=== PATIENT | female | born 1985 | race Caucasian/White ===

== ENCOUNTER 2019-12-25 11:45 | Inpatient (IN) | payer OTHER ==
[~2019-12-25] VITALS: Ht 165.1 cm; Wt 51.7 kg
[2019-12-25] VITALS (8 sets, daily range): BP systolic 90–142; BP diastolic 58–92
[2019-12-25 12:33] LABS: HEMATOCRIT 39.8 % (37.0-47.0); HEMOGLOBIN 13.2 gm/dL (12.0-15.0); MCH 28.3 pg (26.0-34.0); MCHC 33.2 g/dL (28.0-37.0); MCV 85.4 fL (80.0-100.0); MPV 8.3 fl. (7.2-11.1); NUCLEATED RBCS 0 /100WBC; PLATELET COUNT* 247 thou/uL (150-400); RBC 4.66 mil/uL (4.20-5.00); RDW-CV 13.5 % (10.5-14.5); WBC 7.1 thou/uL (4.0-11.0)
[2019-12-25 12:34] LABS: ABSOLUTE EOSINOPHILS 0.1 thou/uL (0.0-0.7); ABSOLUTE LYMPHOCYTES 2.2 thou/uL (0.8-5.3); ABSOLUTE MONOCYTES 0.4 thou/uL (0.0-1.2); ABSOLUTE NEUTROPHILS 4.5 thou/uL (1.6-8.1); BASOPHILS 0.6 %; EOSINOPHILS 0.9 %; LYMPHOCYTES 30.3 %; MONOCYTES 5.7 %; POLYS 62.5 %
[2019-12-25 12:38] LABS: CALCIUM 8.6 mg/dL (8.5-10.1); CREATININE 0.8 mg/dL (0.6-1.3); POTASSIUM 3.9 mmol/L (3.5-5.1)
[2019-12-25 12:42] LABS: ALBUMIN 4.4 g/dL (3.4-5.0); TOTAL BILIRUBIN 0.7 mg/dL (<0.1-1.0); TOTAL PROTEIN 7.4 g/dL (6.4-8.2)
[2019-12-25 12:56] LABS: URINE BILIRUBIN NEGATIVE (Negative); URINE BLOOD NEGATIVE (Negative); URINE CLARITY CLEAR; URINE COLOR YELLOW; URINE GLUCOSE-RANDOM NEGATIVE (Negative); URINE KETONES NEGATIVE (Negative); URINE LEUKOCYTES-REFLEX NEGATIVE (Negative); URINE NITRITE-REFLEX NEGATIVE (Negative); URINE PROTEIN NEGATIVE (Negative); URINE SPECIFIC GRAVITY 1.015 (1.005-1.030); URINE UROBILINOGEN 0.2 E.U./dl (0.2-1.0)
[2019-12-25 16:18] LABS: AMP/METHAMP Negative (Negative); BARBITURATES Negative (Negative); BENZODIAZEPINES Negative (Negative); COCAINE Negative (Negative); METHADONE Negative (Negative); OPIATES Negative (Negative); PCP Negative (Negative); THC Negative (Negative)
--- NOTE | 2019-12-25 19:00 | NUR ---
Patient admitted to ICU 6 in stable condition. NSR on the monitor. Vitals within normal limits. No c/o pain at this time. Pt oriented to room and plan of care. Admission assessment completed. Consult called to neurology
[2019-12-26] VITALS (30 sets, daily range): BP systolic 83–127; BP diastolic 37–87
[2019-12-26 04:09] LABS: CHOLESTEROL 128 mg/dL (<200); HDL CHOLESTEROL 51 mg/dL (>40); LDL CHOLESTEROL 69 mg/dL (<100); TC:HDL 2.5 Ratio (Not establshd); TRIGLYCERIDE 44 mg/dL (<150); VLDL 9 mg/dL (<40)
[2019-12-26 04:13] LABS: SERUM ASSESSMENT Clear
--- NOTE | 2019-12-26 05:58 | NUR ---
Patient has been awake all night. She states her headache is mild and refuses interventions. Her blood pressure has remained low 85-90's/40's with mp 62-70. She continues to deny dizziness or vision changes. She moves independently without difficulty but has been reminded several times to still ask for assistance if she needs to exit the bed for safety reasons. She insists she's "fine". JEISON pending. Echo ordered for later today. She has remained SB/NSR without ectopy. Sats >96% on RA. No respiratory complaints. She is anxious for her mother to arrive. NS cont's at 100cc/hr.
[2019-12-26] MEDS ORDERED: ADULT LOW DOSE81 MG PO (09:13)
--- NOTE | 2019-12-26 09:48 | EKG ---
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
--- NOTE | 2019-12-26 11:08 | NUR ---
ECHO COMPLETED.ORTHOSTATIC BP COMPLETED.IVS REMOVED.PT OK FOR DISCHARGE.PAPERWORK COMPLETED AND GIVEN TO THE PT.SCRIPT GIVEN WITH EDUCATION.FOLLOW UP APPOINTMENTS DISCUSSED WITH PT.PT COMMUNICATES UNDERSTANDING.ALL PERSONAL BELONGINGS PACKED AND TAKEN WITH PT.PT WHEELED OUT BY NURSING STAFF TO PERSONAL VEHICLE.
--- NOTE | 2019-12-26 14:00 | 2DMMODE ---
[place] [address] 2 D/M-MODE ECHOCARDIOGRAM Name: CARL NGUYEN Gerard Room: [address] IN .R.#: [id number] Admission: 12/25/19 Attend Phys: Trung mcgowan Sa Discharge: 12/26/19 Date of : 89 Date of Service: 12/26/19 1359 Report #: [id number] THIS REPORT FOR: cc: Shalini Harris. Shalini Kidd. Elder Pierson MD [facility] ~ APPROVED REPORT Study performed: 12/26/2019 10:24:29 EXAM: Comprehensive 2D, Doppler, and color-flow Echocardiogram Patient Location: In-Patient Room #: 006 Status: routine BSA: 1.56 HR: 61 bpm BP: 92/44 mmHg Rhythm: NSR Other Information Study Quality: Good Indications migraine Echo Enhancing Agent Indication: Rule out Shunt Agent(s) / Amount(s) Used: Agitated Saline 10 cc 2D Dimensions IVSd: 8.84 (7-11mm) LVOT Diam: 18.18 (18-24mm) LVDd: 40.08 mm PWd: 6.50 (7-11mm) Ascending Ao: 24.88 (22-36mm) LVDs: 22.82 (25-40mm) Aortic Root: 25.38 mm Volumes Left Atrial Volume (Systole) LA ESV Index: 17.40 mL/m2 Aortic Valve AoV Peak Humza.: 1.20 m/s AO Peak Gr.: 5.74 mmHg LVOT Max P.16 mmHg AO Mean Gr.: 3.04 mmHg LVOT Mean P.86 [place] [address] 2 D/M-MODE ECHOCARDIOGRAM Name: CARL NGUYEN Room: [address]#: [id number] Admission: 12/25/19 Attend Phys: Trung mcgowan Sa Discharge: 12/26/19 Date of : 89 Date of Service: 12/26/19 1359 Report #: [id number] LVOT Max V: 1.24 m/s AO V2 VTI: 26.24 cm LVOT Mean V: 0.77 m/s MERLYN (VTI): 2.82 cm2 LVOT V1 VTI: 28.52 cm Mitral Valve E/A Ratio: 1.66 MV Decel. Time: 217.04 ms MV E Max Humza.: 1.12 m/s MV PHT: 62.94 ms MVA (PHT): 3.50 cm2 TDI E/Lateral E': 7.00 E/Medial E': 7.47 Medial E' Humza.: 0.15 m/s Lateral E' Humza.: 0.16 m/s Pulmonary Valve PV Peak Humza.: 0.86 m/s PV Peak Gr.: 2.95 mmHg Left Ventricle The left ventricle is normal size. There is normal LV segmental wall motion. There is normal left ventricular wall thickness. Left ventricular systolic function is normal. LVEF is 60-65%. The left ventricular diastolic function is normal. Right Ventricle The right ventricle is normal size. The right ventricular systolic function is normal. Atria The left atrium size is normal. Injection of bubbles documented an interatrial shunt. The right atrium size is normal. Aortic Valve The aortic valve is normal in structure. No aortic regurgitation is present. There is no aortic valvular stenosis. Mitral Valve The mitral valve is normal in structure. Trace mitral regurgitation. No evidence of mitral valve stenosis. Tricuspid Valve The tricuspid valve is normal in structure. There is no tricuspid valve regurgitation [place] [address] 2 D/M-MODE ECHOCARDIOGRAM Name: CARL NGUYEN Room: [address] IN M.R.#: [id number] Admission: 12/25/19 Attend Phys: Trung mcgowan Sa Discharge: 12/26/19 Date of : 89 Date of Service: 12/26/19 1359 Report #: [id number] The pulmonary valve is normal in structure. There is no pulmonic valvular regurgitation. Great Vessels The aortic root is normal in size. IVC is normal in size and collapses >50% with inspiration. Pericardium There is no pericardial effusion. <Conclusion> The left ventricle is normal size. There is normal left ventricular wall thickness. Left ventricular systolic function is normal. LVEF is 60-65%. The left ventricular diastolic function is normal. There is normal LV segmental wall motion. Trace mitral regurgitation. IVC is normal in size and collapses >50% with inspiration. Injection of bubbles documented an interatrial shunt. <ELECTRONICALLY SIGNED> By: Elder Keating MD, FACC 12/26/19 1359 1359 1359 Elder Keating MD, FACC /INF
--- NOTE | 2019-12-26 15:39 | NUR ---
Pt discharged to home today. ordered a 30 day event monitor, ALEXANDRA contacted Pt's PCP, Dr Harris p:[phone] and faxed referral and clinical info to [phone]. ALEXANDRA also provided Pt with a list of PCPs per her health insurance.
--- NOTE | 2019-12-28 17:53 | CON ---
[address] [address] CONSULTATION Name: CARL NGUYEN Room: [address] IN M.R.#: [id number] Admission: 12/25/19 Attend Phys: Trung Gonzalez Discharge: 12/26/19 Date of : 89 Report #: [id number] THIS REPORT FOR: //name// cc: Shalini Harris. DO Shalini Harris. DO ~ THIS REPORT FOR: //name// CC: Trung Rollins. Steven DATE OF SERVICE: 12/25/2019 HISTORY OF PRESENT ILLNESS: This is a 34-year-old female patient who was discussed with the Emergency Room provider. The patient says that sometimes she feels dizzy. It does not appear to be postural or with the movement of the head. It comes spontaneously and then she becomes better. Today, she had dizziness as well as diplopia. There was not much headache. Symptom resolved by itself. The episode is going on for a year. She does not believe she has many risk factors. She does have an implantable contraception. Her test is negative. REVIEW OF SYSTEMS: Indicates that she is healthy. She does not believe she is under stress. 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 Fourteen-point review of system was otherwise unremarkable. PAST MEDICAL HISTORY: Unremarkable. FAMILY HISTORY: Noncontributory. SOCIAL HISTORY: She does not drink alcohol on a regular basis. PHYSICAL EXAMINATION: GENERAL: Indicate that she is alert. She is responsive. She can follow simple and complex commands. Her speech, concentration, fund of knowledge, and memory are at her baseline. VITALS: Blood pressure is 125/62, temperature is 98, and pulse is 72. NEUROLOGIC: Cranial nerve examination on my examination appears unremarkable. She has symmetrical strength, sensation, reflexes, and tone in all 4 extremities. There is no meningeal sign. NECK: There is no carotid bruit. CARDIOVASCULAR AND RESPIRATORY: Unremarkable. LABORATORY DATA: Indicated normal white count. She did have MRI of the brain and MRA and they were reviewed and they were unremarkable. IMPRESSION: The patient's symptoms are most likely [place] [address] CONSULTATION Name: CARL NGUYEN Room: [address]#: [id number] Admission: 12/25/19 Attend Phys: Trung Gonzalez Discharge: 12/26/19 Date of : 89 Report #: [id number] migraine. We will check an echocardiogram to look for patent foramen ovale. RECOMMENDATIONS: I will put her on 81 mg aspirin, but she should take it only if she does not plan to conceive. I will check a lipid profile to look for any other associated factors. I will also check some collagen vascular workup. If this workup is unremarkable, she needs to be mainly watched on aspirin, but I told her that aspirin can be teratogenic in the first trimester. Thank you very much for this referral. <ELECTRONICALLY SIGNED> By: Kranthi Flowers MD 12/28/19 1753 [id number] [id number] Flowers MD /nt
== END 2019-12-26 11:20 | disposition home or self-care (01) | DRG 72 ==
LOC: M.ERS 11:45 → M.ICU 13:54 → M.TBA-ER 13:54 → M.ICU 18:20
PROVIDERS: Physician Assistant; Psychiatry & Neurology Neuromuscular Medicine; ADMIT Family Medicine; ATTEND Family Medicine
DX: I67.83 Posterior reversible encephalopathy syndrome (principal); F17.210 Nicotine dependence, cigarettes, uncomplicated; Z72.89 Other problems related to lifestyle; Z90.49 Acquired absence of other specified parts of digestive tract; Z82.69 Family history of other diseases of the musculoskeletal system and connective tissue; Z03.818 Encounter for observation for suspected exposure to other biological agents ruled out

== ENCOUNTER 2021-03-09 11:13 | Emergency (ER) | payer OTHER ==
[~2021-03-09] VITALS: Ht 152.4 cm; Wt 49.0 kg
[~2021-03-09 11:13] MED LIST: ADULT LOW DOSE81 MG PO
[2021-03-09] MEDS ORDERED: TRAMADOL 50 MG50 MG PO (12:04)
[2021-03-09 12:17] VITALS: BP 134/81
== END 2021-03-09 12:18 | disposition home or self-care (01) ==
LOC: M.ERS 11:13
DX: M79.671 Pain in right foot (principal); F17.210 Nicotine dependence, cigarettes, uncomplicated; Z90.89 Acquired absence of other organs; Z98.890 Other specified postprocedural states